=== PATIENT | male | born 1950 | race Caucasian/White ===

== ENCOUNTER 2024-04-06 10:30 | Emergency (ER) | payer SELFPAY ==
[2024-04-06 10:33] VITALS: BMI 20.3
[2024-04-06 10:39] VITALS: BP 160/98
[2024-04-06 11:00] VITALS: BP 176/84
--- NOTE | 2024-04-06 11:01 | ED.GENMED ---
History of Present Illness
General
Chief Complaint: Wound Check/Suture Removal
Source: patient and police
Time Seen by Provider: 04/06/24 10:57
History of Present Illness
History of Present Illness:
73-year-old male brought to the emergency room in police custody. Patient was arrested after being found at 4 AM breaking into a house. Patient reportedly resisted arrest and acquired some abrasions in the process. Patient brought for medical
clearance for incarceration. Patient abusive on exam. His response to me asking his name was fuck you. He did endorse a history of bipolar disease. He has taken Depakote for this in the past but is not taking it now because 'I do not need it'.
Patient has some pain on his face with her abrasions. He also endorses some upper abdominal discomfort.
Phy Exam
Physical Exam
Physical Exam:
General: Awake, Alert, Oriented X3. Agitated but does not appear in any medical distress
Vitals: Hypothermic
Head: Abrasions to forehead and cheek, no swelling. No step-offs.
Eyes: Pupils equal, EOMI
Throat: Airway intact, no exudates
Neck: Trachea midline
Lungs: Clear and equal b/l
Heart: Regular rate, no murmurs
Abd: Soft, mild discomfort to palpation lower chest upper abdomen, No pulsatile mass
Neuro: Nonfocal
Skin: Warm, dry, no rash
Extremities: pulses equal b/l, no edema
Course
Vital Signs
Initial and Last Documented VS:
Initial Vital Signs
Temp Pulse Resp BP Pulse Ox
94.5 F L 74 13 160/98 99
04/06/24 10:39 04/06/24 10:39 04/06/24 10:39 04/06/24 10:39 04/06/24 10:39
Last Documented Vital Signs
Temp Pulse Resp BP Pulse Ox
94.5 F L 83 23 176/84 100
04/06/24 10:39 04/06/24 11:00 04/06/24 11:00 04/06/24 11:00 04/06/24 11:00
MDM/Problems Addressed
Differential Diagnosis Includes:
Patient suffered some abrasions and contusions but there is no evidence for severe pathology. He has a normal heart rate. His blood pressure is elevated. He was found to be hypothermic likely from being outside for an extended period of time.
However he was provided warm blankets. He has a normal mental status. Patient can be discharged for incarceration. He is medically clear for incarceration
*Pulse Oximetry
Patient hypoxic: no
*Critical Care Note
Total Time (30-74mins, 75-104mins- exclusive of procedures): Not Applicable
ED Attending Note
-
Portions of this chart may have been created with voice recognition software.� Occasional wrong word or��sound alike� substitutions may have occurred due to the inherent limitations of voice recognition software.
Discharge Plan
Departure
Patient Disposition: [facility]
Date of Disposition: 04/06/24
Time of Disposition: 11:02
Condition: Good
Discharge Problem:
Abrasion head, Multiple contusions
Instructions: Abrasions ED, BLOOD PRESSURE
Referrals:
UNKNOWN - PT NOT,INTERVIEWE [Family Provider] -
Activity Restrictions/Additional Instructions:
Pt s medically clear for incarceration.
Interventions
Interventions:
*Risk Screen - Suicide Last Done: 04/06/24 10:47
*General Assessment Last Done: 04/06/24 10:45
*Neglect/Abuse Screening Last Done: 04/06/24 10:47
ED- Fall Risk Assessment Last Done: 04/06/24 10:35
*ED COVID-19 Vaccine History Last Done: 04/06/24 10:45
*Nursing Disposition Last Done: 04/06/24 11:20
ED-Skin Assessment Last Done: 04/06/24 10:54
Discharge Date and Time
Discharge Date/Time: 04/06/24 11:20
Print Language: ROMANSH
== END 2024-04-06 11:20 ==
LOC: EMR 10:30
PROVIDERS: EMERGENCY PHYSICIAN Emergency Medicine
DX: S00.81XA Abrasion of other part of head, initial encounter (principal); S00.83XA Contusion of other part of head, initial encounter; Y35.93XA Legal intervention, means unspecified, suspect injured, initial encounter; T68.XXXA Hypothermia, initial encounter; X31.XXXA Exposure to excessive natural cold, initial encounter
CPT/HCPCS: 99282